=== PATIENT | male | born 1975 | race Hispanic/Latino ===

== ENCOUNTER 2021-03-21 13:21 | Outpatient (AMBR) | payer MEDICAID, SELFPAY ==
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
--- NOTE | 2021-03-21 15:35 | PT.ODAYNRPT ---
PT Outpatient Daily Note Date of Service: 03/21/21 OP Daily Note Visit Reasons: LEFT TIBIAL ORIF Outpatient Physical Therapy Treatment Date: 03/21/21 Subjective: Same as time of evaluation Objective: See F/S for therex MT: PPM knee flexion with overpressure x7' to 110 deg Assessment: Pt has decreased WB of L LE. Improved knee PROM into flexion to 110 deg today. Plan: Continue per POC Length of Time (minutes) of Treatment: 30 Minutes Office Procedures PT Treatments PT Date of Service: 03/21/21 Therapeutic Exercise 30 minutes: Yes PT Treatments PT Date of Service: 03/20/21 OP PT Eval Low Complex 20 minutes: Yes
== END 2021-03-31 23:59 | disposition home or self-care (01) ==
PROVIDERS: PCP Nurse Practitioner Family; Referring Provider Nurse Practitioner Family; Visit Provider Orthopaedic Surgery
DX: S82.202D Unspecified fracture of shaft of left tibia, subsequent encounter for closed fracture with routine healing (principal); M25.562 Pain in left knee; V89.2XXD Person injured in unspecified motor-vehicle accident, traffic, subsequent encounter
CPT/HCPCS: 97110; 97161

== ENCOUNTER 2021-04-30 15:23 | Outpatient (AMBR) | payer SELFPAY ==
--- NOTE | 2021-04-04 18:40 | PT.ODAYNRPT ---
PT Outpatient Daily Note Date of Service: 04/04/21 OP Daily Note Visit Reasons: LEFT TIBIAL ORIF Outpatient Physical Therapy Treatment Date: 04/04/21 Subjective: He tested positive for covid and was quarantining which is why he hasn't been to therapy. The knee is doing better but 5/10 pain with weightbearing. Objective: See F/S for therex MT: STM L knee and PPm into knee flexion x7' Assessment: Improved PROM into knee flexion today to 115 deg with overpressure. Overall good progress with strengthening but antalgic gait continues. Plan: Continue per POC Length of Time (minutes) of Treatment: 30 Minutes Office Procedures PT Treatments PT Date of Service: 04/04/21 Therapeutic Exercise 30 minutes: Yes
--- NOTE | 2021-04-08 19:48 | PT.ODAYNRPT ---
PT Outpatient Daily Note Date of Service: 04/08/21 OP Daily Note Visit Reasons: LEFT TIBIAL ORIF Outpatient Physical Therapy Treatment Date: 04/08/21 Subjective: He tested positive for covid and was quarantining which is why he hasn't been to therapy. The knee is doing better but 5/10 pain with weightbearing. Objective: See F/S for therex Assessment: Overall good progress with strengthening but antalgic gait continues. Plan: Continue per POC Length of Time (minutes) of Treatment: 30 Minutes Office Procedures PT Treatments PT Date of Service: 04/04/21 Therapeutic Exercise 30 minutes: Yes PT Treatments PT Date of Service: 04/08/21 Therapeutic Exercise 30 minutes: Yes
--- NOTE | 2021-04-10 10:58 | PT.ODAYNRPT ---
PT Outpatient Daily Note Date of Service: 04/10/2021 OP Daily Note Visit Reasons: LEFT TIBIAL ORIF Outpatient Physical Therapy Treatment Date: 04/10/21 Subjective: Pt polish speaking reports he has little pain to knee today. Objective: See flow chart for therex. MT: STM w/ gr[place] to L knee and PPM knee flexion x 7mins. Assessment: Pt presents ambulating w/ FWW at slow rhona, short step length and step through gait. Pt is limited in knee flexion ROM with pain end feel. Pt tolerated MT well w/ minimal TTP inferior of the knee. Pt tolerated therex well w/ minimal complaints to knee. Plan: Cont POC per PT. Length of Time (minutes) of Treatment: 30 Minutes Office Procedures PT Treatments PT Date of Service: 04/04/21 Therapeutic Exercise 30 minutes: Yes PT Treatments PT Date of Service: 04/08/21 Therapeutic Exercise 30 minutes: Yes PT Treatments PT Date of Service: 04/10/21 Therapeutic Exercise 30 minutes: Yes
--- NOTE | 2021-04-16 13:22 | PT.ODAYNRPT ---
PT Outpatient Daily Note Date of Service: 04/16/21 OP Daily Note Visit Reasons: LEFT TIBIAL ORIF Outpatient Physical Therapy Treatment Date: 04/16/21 Subjective: The knee is doing better but 5/10 pain with weightbearing. Objective: See F/S for therex Assessment: Pt able to ambulate with quad cane today with good results. Overall good progress with strengthening but antalgic gait continues due to pain with weightbearing. Plan: Continue per POC Length of Time (minutes) of Treatment: 30 Minutes Office Procedures PT Treatments PT Date of Service: 04/04/21 Therapeutic Exercise 30 minutes: Yes PT Treatments PT Date of Service: 04/08/21 Therapeutic Exercise 30 minutes: Yes PT Treatments PT Date of Service: 04/10/21 Therapeutic Exercise 30 minutes: Yes PT Treatments PT Date of Service: 04/16/21 Therapeutic Exercise 30 minutes: Yes
--- NOTE | 2021-04-18 18:48 | PT.ODAYNRPT ---
PT Outpatient Daily Note Date of Service: 04/18/21 OP Daily Note Visit Reasons: LEFT TIBIAL ORIF Outpatient Physical Therapy Treatment Date: 04/18/21 Subjective: The knee is doing better but 5/10 pain with weightbearing. Objective: See F/S for therex Assessment: Pt able to ambulate with quad cane today with good results. Overall good progress with strengthening but antalgic gait continues due to pain with weightbearing with step ups etc. Plan: Continue per POC Length of Time (minutes) of Treatment: 30 Minutes Office Procedures PT Treatments PT Date of Service: 04/04/21 Therapeutic Exercise 30 minutes: Yes PT Treatments PT Date of Service: 04/08/21 Therapeutic Exercise 30 minutes: Yes PT Treatments PT Date of Service: 04/10/21 Therapeutic Exercise 30 minutes: Yes PT Treatments PT Date of Service: 04/16/21 Therapeutic Exercise 30 minutes: Yes PT Treatments PT Date of Service: 04/18/21 Therapeutic Exercise 30 minutes: Yes
--- NOTE | 2021-04-24 11:06 | PT.ODAYNRPT ---
PT Outpatient Daily Note Date of Service: 04/24/21 OP Daily Note Visit Reasons: LEFT TIBIAL ORIF Outpatient Physical Therapy Treatment Date: 04/24/21 Subjective: The knee is doing better but 5/10 pain with weightbearing and the L ankle is hurting. Objective: See F/S for therex L knee flexion PROM: 122 deg with overpressure Assessment: Pt able to ambulate with quad cane but tends to step laterally on L which may be affecting ankle. Overall great progress with PROM into knee flexion but antalgic gait continues due to pain and lack of confidence with weightbearing with step ups etc. Plan: Continue per POC Length of Time (minutes) of Treatment: 30 Minutes Office Procedures PT Treatments PT Date of Service: 04/04/21 Therapeutic Exercise 30 minutes: Yes PT Treatments PT Date of Service: 04/24/21 Therapeutic Exercise 30 minutes: Yes PT Treatments PT Date of Service: 04/08/21 Therapeutic Exercise 30 minutes: Yes PT Treatments PT Date of Service: 04/10/21 Therapeutic Exercise 30 minutes: Yes PT Treatments PT Date of Service: 04/16/21 Therapeutic Exercise 30 minutes: Yes PT Treatments PT Date of Service: 04/18/21 Therapeutic Exercise 30 minutes: Yes
--- NOTE | 2021-04-30 16:13 | PT.ODAYNRPT ---
PT Outpatient Daily Note Date of Service: 04/30/21 OP Daily Note Visit Reasons: LEFT TIBIAL ORIF Outpatient Physical Therapy Treatment Date: 04/30/21 Subjective: The knee is doing better but 5/10 pain with weightbearing and he hops when he puts weight on the L Objective: See F/S for therex L knee flexion PROM: 122 deg with overpressure Assessment: Pt able to ambulate with quad cane but tends to step laterally on L which may be affecting ankle. Overall great progress with PROM into knee flexion but antalgic gait continues due to pain and lack of confidence with weightbearing with step ups etc. Plan: Continue per POC Length of Time (minutes) of Treatment: 30 Minutes Office Procedures PT Treatments PT Date of Service: 04/04/21 Therapeutic Exercise 30 minutes: Yes PT Treatments PT Date of Service: 04/24/21 Therapeutic Exercise 30 minutes: Yes PT Treatments PT Date of Service: 04/08/21 Therapeutic Exercise 30 minutes: Yes PT Treatments PT Date of Service: 04/10/21 Therapeutic Exercise 30 minutes: Yes PT Treatments PT Date of Service: 04/16/21 Therapeutic Exercise 30 minutes: Yes PT Treatments PT Date of Service: 04/18/21 Therapeutic Exercise 30 minutes: Yes PT Treatments PT Date of Service: 04/30/21 Therapeutic Exercise 30 minutes: Yes
== END 2021-04-30 23:59 | disposition home or self-care (01) ==
PROVIDERS: PCP Nurse Practitioner Family; Referring Provider Nurse Practitioner Family; Visit Provider Orthopaedic Surgery
DX: S82.202D Unspecified fracture of shaft of left tibia, subsequent encounter for closed fracture with routine healing (principal); M79.662 Pain in left lower leg; V89.2XXD Person injured in unspecified motor-vehicle accident, traffic, subsequent encounter
CPT/HCPCS: 97110